=== PATIENT | male | born 1985 | race Caucasian/White ===

== ENCOUNTER 2021-01-02 18:35 | Emergency (ER) | payer OTHER ==
[~2021-01-02] VITALS: Ht 172.7 cm; Wt 68.0 kg
--- NOTE | 2021-01-02 19:18 | NUR ---
PT AAOX4. BIBSELF C/O L FACIAL SWELLING X1 WEEK. FINISHED 1 WEEK DOSE OF CLINDAMYCIN ATB. DID NOT HELP. PLACED IN BED 16 ON MONITOR AND PULSE OX. AWAITING EVAL AND ORDERS.
[2021-01-02] MEDS ORDERED: IV NS 0.9% 1,000 ML BAG IV ONE (20:30)
[2021-01-02] MEDS ORDERED: KETOROLAC TROMETHAMINE INJ 30 MG/ML VIAL IV ONE (20:30)
[2021-01-02] MEDS ORDERED: PIPERACILLIN /TAZOBACTAM 3.375 G in IV D5W 50 ML IV ONE (20:30)
[2021-01-02] MEDS ORDERED: KETOROLAC TROMETHAMINE INJ 30 MG/ML VIAL ONE (20:45)
[2021-01-02] MEDS ORDERED: PIPERACILLIN /TAZOBACTAM 3.375 G VIAL IV ONE (20:45)
[2021-01-02 20:48] LABS: BASOPHILS # (AUTO) 0.1 K/uL (0.0-0.2); BASOPHILS % (AUTO) 0.6 % (0.0-2.0); EOSINOPHILS % (AUTO) 0.8 % (0.0-6.0); HEMATOCRIT 41 % (39-51); HEMOGLOBIN 13.6 g/dL (13.5-17.5); LYMPHOCYTES # (AUTO) 1.2 K/uL (0.8-4.8); LYMPHOCYTES % (AUTO) 9.2 % (20.0-44.0); MEAN CORPUSCULAR HGB CONC 33 g/dl (31.0-36.0); MEAN CORPUSCULAR VOLUME 90 fL (80-96); MONOCYTES # (AUTO) 1.6 K/uL (0.1-1.30); MONOCYTES % (AUTO) 11.9 % (2.0-12.0); NEUTROPHILS # (AUTO) 10.3 K/uL (1.8-8.9); NEUTROPHILS % (AUTO) 77.5 % (43.0-81.0); PLATELET COUNT (AUTO) 301 K/uL (150-450); RED BLOOD CELL COUNT(AUTO) 4.53 MIL/uL (4.5-6.0); WHITE BLOOD COUNT (AUTO) 13.2 K/uL (4.3-11.0)
[2021-01-02] MEDS ORDERED: IV NS 0.9% 250 ML IV ONE (20:53)
[2021-01-02] MEDS ORDERED: IOHEXOL-300 100 ML VIAL IV ONE (20:53)
[2021-01-02 21:07] LABS: CREATININE 1.5 mg/dL (0.6-1.3); POTASSIUM 4.2 mmol/L (3.5-5.1)
[2021-01-02 23:16] VITALS: BP 128/75
--- NOTE | 2021-01-02 23:32 | NUR ---
IV removed. Catheter intact and site benign. Pressure and 4x4 applied to site. No bleeding noted.
--- NOTE | 2021-01-02 23:32 | NUR ---
Patient does not wish to proceed with medical care recommended by MAURO SOLOMON. Patient given information related to possible complications, up to and including , which could occur as a result of leaving the hospital at this time. Patient verbalizes understanding of risks involved due to leaving against medical advice. Patient has signed AMA form.
[2021-01-02] MEDS ORDERED: ACET-907 PO (23:36)
[2021-01-02] MEDS ORDERED: IBUP-1957 PO (23:36)
[2021-01-02] MEDS ORDERED: AMOX-430 PO (23:36)
[2021-01-02] MEDS ORDERED: ONDANSETRON HCL/PF 4 MG/2 ML VIAL ONE (23:38)
[2021-01-02] MEDS ORDERED: MORPHINE SULFATE INJ 4 MG/ML DISP.SYRIN ONE (23:38)
--- NOTE | 2021-01-02 23:58 | NUR ---
Patient discharged to home in stable condition. Written and verbal after care instructions given. Patient verbalizes understanding of instruction and RX. Pt ambulated out of ED. VSS. RR even and unlabored.
[2021-01-03] MEDS ORDERED: ONDANSETRON HCL/PF - ER 4 MG/2 ML VIAL IV ONE
[2021-01-03] MEDS ORDERED: MORPHINE SULFATE INJ 2 MG/ML DISP.SYRIN IV ONE
== END 2021-01-03 00:05 | disposition left against medical advice (07) ==
LOC: ER 18:35
DX: L03.211 Cellulitis of face (principal); L02.01 Cutaneous abscess of face; K05.30 Chronic periodontitis, unspecified; N17.9 Acute kidney failure, unspecified; K00.7 Teething syndrome; R00.0 Tachycardia, unspecified; F17.200 Nicotine dependence, unspecified, uncomplicated; Z79.899 Other long term (current) drug therapy
CPT/HCPCS: 36415; 70487; 70491; 80048; 83605; 85025; 85730; 87040 ×2; 96365; 96375; 99285; J1885; J2270; J2405 ×2; J2543 ×2; J7030; J7050; J7060; Q9967